=== PATIENT | female | born 1970 | race Caucasian/White ===

== ENCOUNTER 2016-12-07 11:29 | Emergency (ER) | payer OTHER ==
[~2016-12-07] VITALS: Ht 162.6 cm; Wt 59.0 kg
[~2016-12-07 11:29] MED LIST: Z.0.NO CURRENT MEDS
[2016-12-07 11:30] VITALS: BP 114/63; PULSE 72; RESP 15; TEMP 98.4; O2SAT 98
[2016-12-07] MEDS ORDERED: IOHEXOL 350 MG/ML 10 ML VIAL (for RAD DIAG) IVCONTRAST ONE (11:30)
--- NOTE | 2016-12-07 12:41 | PD ---
HPI Chief Complaint: Abdominal Pain Time Seen by Provider: 12:17 Travel History International Travel<30 days: No Contact w/Intl Traveler<30days: No Traveled to known affect area: No History of Present Illness HPI 46 YO F presents to the ED for evaluation of 2 week history of constant, dull, 5 /10 bilateral lower quadrant abdominal pain. Patient states the pain sometimes radiates to the back. Sudden onset while the patient was walking. Worsened by urge to have a BM. Relieved by producing a bowel movement. She endorses accompanying nausea. She endorses a single episode of dark stool. She denies fevers, chills, vomiting, diarrhea, constipation, hematochezia, dysuria, hematuria, vaginal discharge, irregular vaginal bleeding. She treated at home with a heating pad and ibuprofen with mild improvement of symptoms. She denies any previous abdominal surgery. Shes never had a colonoscopy. LMP 12/01, normal per the patient. PFSH Past Medical History Medical History: Denies Significant Hx ?: Unknown LMP: 12/01/16 : 5 Para: 5 Past Surgical History Oral Surgery: Yes (TONSIL AND SINUS SURGERY ) Tonsillectomy: Yes Other Surgery: Yes Social History Alcohol Use: No Tobacco Use: No Substance Use: No Allergies-Medications (Allergen,Severity, Reaction): Coded Allergies: penicillin G (Unverified Allergy, Intermediate, RASH, 10/02/16) Reported Meds & Prescriptions Reported Meds & Active Scripts Active No Active Prescriptions or Reported Medications Review of Systems Except as stated in HPI: all other systems reviewed are Neg Physical Exam Narrative GENERAL: Well-nourished, well-developed thin, petite white female in no acute distress. SKIN: Focused skin assessment warm/dry. HEAD: Normocephalic. EYES: No scleral icterus. No injection or drainage. NECK: Supple, trachea midline. No JVD or lymphadenopathy. CARDIOVASCULAR: Regular rate and rhythm without murmurs, gallops, or rubs. RESPIRATORY: Breath sounds clear and equal bilaterally. No accessory muscle use. GASTROINTESTINAL: Abdomen soft, non-tender, nondistended. No suprapubic tenderness. Negative Almazan sign. Active bowel sounds. RECTAL EXAM: No masses or tenderness, stool is brown. Guaiac negative. MUSCULOSKELETAL: No cyanosis, or edema. BACK: Nontender without obvious deformity. No CVA tenderness. Data Data Last Documented VS Vital Signs Date Time Temp Pulse Resp B/P (MAP) Pulse Ox O2 Delivery O2 Flow Rate FiO2 12/07/16 14:51 12/07/16 11:30 98.4 72 15 98 Orders Orders Complete Blood Count With Diff (12/07/16 12:33) Comprehensive Metabolic Panel (12/07/16 12:33) Lipase (12/07/16 12:33) Lactic Acid (12/07/16 12:33) Urinalysis - C+S If Indicated (12/07/16 12:33) Iv Access Insert/Monitor (12/07/16 12:33) Ondansetron Inj (Zofran Inj) (12/07/16 12:45) Sodium Chloride 0.9% Flush (Ns Flush) (12/07/16 12:45) Ketorolac Inj (Toradol Inj) (12/07/16 12:45) Ed Urine Pregnancytest Poc (12/07/16 12:33) Ct Abd/Pel W Iv Contrast(Rout) (12/07/16 13:34) Iohexol 350 Inj (Omnipaque 350 Inj) (12/07/16 11:30) Ed Discharge Order (12/07/16 15:38) Labs Laboratory Tests Test 12/07/16 12:50 White Blood Count 7.3 TH/MM3 Red Blood Count 4.60 MIL/MM3 Hemoglobin 13.3 GM/DL Hematocrit 40.9 % Mean Corpuscular Volume 88.9 FL Mean Corpuscular Hemoglobin 28.8 PG Mean Corpuscular Hemoglobin Concent 32.4 % Red Cell Distribution Width 13.4 % Platelet Count 258 TH/MM3 Mean Platelet Volume 8.1 FL Neutrophils (%) (Auto) 57.2 % Lymphocytes (%) (Auto) 27.1 % Monocytes (%) (Auto) 7.0 % Eosinophils (%) (Auto) 7.8 % Basophils (%) (Auto) 0.9 % Neutrophils # (Auto) 4.2 TH/MM3 Lymphocytes # (Auto) 2.0 TH/MM3 Monocytes # (Auto) 0.5 TH/MM3 Eosinophils # (Auto) 0.6 TH/MM3 Basophils # (Auto) 0.1 TH/MM3 CBC Comment DIFF FINAL Differential Comment Urine Color YELLOW Urine Turbidity CLEAR Urine pH 6.0 Urine Specific [place] 1.023 Urine Protein NEG mg/dL Urine Glucose (UA) NEG mg/dL Urine Ketones NEG mg/dL Urine Occult Blood NEG Urine Nitrite NEG Urine Bilirubin NEG Urine Urobilinogen LESS THAN 2.0 MG/DL Urine Leukocyte Esterase NEG Urine RBC 1 /hpf Urine WBC LESS THAN 1 /hpf Microscopic Urinalysis Comment CULT NOT INDICATED Blood Urea Nitrogen 16 MG/DL Creatinine 0.56 MG/DL Random Glucose 81 MG/DL Total Protein 7.3 GM/DL Albumin 3.3 GM/DL Calcium Level 9.0 MG/DL Alkaline Phosphatase 88 U/L Aspartate Amino Transf (AST/SGOT) 12 U/L Alanine Aminotransferase (ALT/SGPT) 21 U/L Total Bilirubin 0.2 MG/DL Sodium Level 139 MEQ/L Potassium Level 3.6 MEQ/L Chloride Level 105 MEQ/L Carbon Dioxide Level 28.2 MEQ/L Anion Gap 6 MEQ/L Estimat Glomerular Filtration Rate 118 ML/MIN Lactic Acid Level 0.8 mmol/L Lipase 287 U/L MDM Medical Decision Making Medical Screen Exam Complete: Yes Emergency Medical Condition: Yes Differential Diagnosis UTI versus versus GI bleed versus other Narrative Course 46 YO F presents to the ED for evaluation of 2 week history of constant, dull, 5 /10 bilateral lower quadrant abdominal pain with occasional radiation to the back. Worsened by urge to have a BM. Relieved by producing a BM. She endorses accompanying nausea. She endorses a single episode of dark stool. She denies fevers, chills, vomiting, diarrhea, constipation, hematochezia, dysuria, hematuria, vaginal discharge, irregular vaginal bleeding. She denies any previous abdominal surgery. Shes never had a colonoscopy. LMP 1014, normal per the patient. Vitals reviewed. Physical exam reveals a nontoxic-appearing petite white female in no acute distress. Abdominal exam is unremarkable. Rectal exam guaiac negative. Urine test negative. No concerning abnormalities of CBC, CMP, UA. No elevations of lactic acid her lipase. I discussed the results of the workup with the patient but she is stating that she still experiencing pain and requests a CT of the abdomen. CT reveals no acute source of the patient's discomfort. I discussed the results of the workup with the patient. I provided her with a copy of CT results. I instructed her to follow up with the primary care provider or possibly the corrections specialist if symptoms persist. We discussed reasons to return to the ED. She indicated understanding of instructions and is agreeable to the plan. She is stable and discharged home. Diagnosis Primary Impression: Lower abdominal pain, unspecified Referrals: Primary Care Physician Patient Instructions: Abdominal Pain (ED), General Instructions Additional Instructions: Rest, hydrate. Return to normal, gentle activities as tolerated. Follow up with the primary care provider or corrections specialist. Return to the ED for any urgent or emergent medical condition. Scripts No Active Prescriptions or Reported Meds Disposition: 01 DISCHARGE HOME Condition: Stable Liz Moreno Dec 07, 2016 12:41
[2016-12-07] MEDS ORDERED: SODIUM CHLORIDE 0.9% FLUSH 10 ML FLUSH IV FLUSH PRN (12:45)
[2016-12-07] MEDS ORDERED: ONDANSETRON HCL 4 MG/2 ML VIAL IVP ONE (12:45)
[2016-12-07] MEDS ORDERED: KETOROLAC TROMETHAMINE 30 MG/ML (IVP) VIAL IVP ONE (12:45)
[2016-12-07 13:02] LABS: AUTOMATED NEUTROPHIL # 4.2 TH/MM3 (1.8-7.7); BASOPHIL # 0.1 TH/MM3 (0-0.2); BASOPHIL % 0.9 % (0.0-2.0); EOSINOPHIL # 0.6 TH/MM3 (0-0.4); EOSINOPHIL % 7.8 % (0.0-4.0); HEMATOCRIT 40.9 % (35.0-46.0); HEMO FLAGS DIFF FINAL; LYMPH % 27.1 % (9.0-44.0); MEAN CELL VOLUME 88.9 FL (80.0-100.0); MEAN CORPUSCULAR HEMOGLOBIN 28.8 PG (27.0-34.0); MEAN CORPUSCULAR HGB CONC 32.4 % (32.0-36.0); NEUT % 57.2 % (16.0-70.0); PLATELET COUNT 258 TH/MM3 (150-450); RED CELL DISTRIBUTION WIDTH 13.4 % (11.6-17.2); WHITE BLOOD COUNT 7.3 TH/MM3 (4.0-11.0)
[2016-12-07 13:04] LABS: BLOOD, URINE NEG (NEG); GLUCOSE,URINE NEG (NEG); KETONE, URINE NEG (NEG); NITRITE,URINE NEG (NEG); URINE COLOR YELLOW (YELLW/STRAW)
[2016-12-07 13:15] LABS: COMMENT (UR) CULT NOT INDICATED; CULTURE IF INDICATED CULT NOT INDICATED
[2016-12-07 13:18] LABS: ANION GAP 6 MEQ/L (5-15); AST (GOT) 12 U/L (15-37); BICARBONATE 28.2 MEQ/L (21.0-32.0); BLOOD UREA NITROGEN 16 MG/DL (7-18); CHLORIDE 105 MEQ/L (98-107); GLOMERULAR FILTRATION RATE 118 ML/MIN (>89); POTASSIUM 3.6 MEQ/L (3.5-5.1); SODIUM (NA) 139 MEQ/L (136-145)
[2016-12-07 13:19] LABS: ALT (GPT) 21 U/L (10-53)
[2016-12-07 13:21] LABS: ALKALINE PHOSPHATASE 88 U/L (45-117); TOTAL BILIRUBIN ADULT 0.2 MG/DL (0.2-1.0)
--- NOTE | 2016-12-07 14:09 | RADRPT ---
EXAM DATE/TIME: 12/07/2016 13:54 [facility] COMPARISON: No previous studies available for comparison. INDICATIONS : Diffuse lower left abdomen pain for one day. IV CONTRAST: 93 cc Omnipaque 350 (iohexol) IV ORAL CONTRAST: No oral contrast ingested. RADIATION DOSE: 5.63 CTDIvol (mGy) MEDICAL HISTORY : None SURGICAL HISTORY : None. ENCOUNTER: Initial ACUITY: 1 day PAIN SCALE: 6/10 LOCATION: Left lower quadrant TECHNIQUE: Volumetric scanning of the abdomen and pelvis was performed. Using automated exposure control and ad justment of the mA and/or kV according to patient size, radiation dose was kept as low as reasonably achievable to obtain optimal diagnostic quality images. DICOM format image data is available electro nically for review and comparison. FINDINGS: LOWER LUNGS: The visualized lower lungs are clear. LIVER: Homogeneous density without lesion. The liver measures 21 cm in length. There is a calcified stone i n the gallbladder. No wall thickening or inflammatory changes present. There is no dilation of the bi liary tree. SPLEEN: Normal size without lesion. PANCREAS: Within normal limits. KIDNEYS: Normal in size and shape. There is no mass, stone or hydronephrosis. ADRENAL GLANDS: Within normal limits. VASCULAR: There is no aortic aneurysm. There is mild atherosclerotic disease. BOWEL/MESENTERY: The stomach, small bowel, and colon demonstrate no acute abnormality. There is no free intraperitone al air or fluid. ABDOMINAL WALL: There is a subcutaneous ovoid nodule in the posterior back just to the right of midline. It measures 2 cm. No hernia is present. RETROPERITONEUM: There is no lymphadenopathy. BLADDER: No wall thickening or mass. REPRODUCTIVE: Within normal limits. INGUINAL: There is no lymphadenopathy or hernia. MUSCULOSKELETAL: No acute abnormality. CONCLUSION: 1. No acute abnormality is identified within the abdomen or pelvis. 2. Non acute findings included cholelithiasis, mild hepatomegaly, and 2 cm subcutaneous sebaceous cys t on the right back. Fortino Morales MD on December 07, 2016 at 14:02 Board Certified Radiologist. This report was verified electronically.
== END 2016-12-07 14:57 | disposition home or self-care (01) ==
LOC: NEPD 11:29
DX: R10.31 Right lower quadrant pain (principal); R10.32 Left lower quadrant pain
CPT/HCPCS: 74177; 80053; 81001; 83605; 83690; 84703; 85025; 96374; 96375; 99285; J1885; J2405; Q9967